=== PATIENT | male | born 1960 | race Caucasian/White ===

== ENCOUNTER 2018-12-31 22:22 | Emergency (ER) | payer BC, OTHER ==
--- NOTE | 2018-12-31 22:59 | EDM.PDOC ---
ED HPI GENERAL MEDICAL PROBLEM - General Stated Complaint: FALL; FAINTED Time Seen by Provider: 12/31/18 22:55 Source of Information: Reports: Patient, Family () History Limitations: Reports: Other (Patient is amnestic of the event.) - History of Present Illness INITIAL COMMENTS - FREE TEXT/NARRATIVE: 58-year-old male who by reports of he and his had sexual intercourse with his between 8 and 9 and they were lying in bed and she reports that he was rubbing her back and seemed to be dozing in and out and then at approximately 9: 15 to 9:30 PM she reports she began to complain of some left arm soreness and then at approximately 9:30 PM he reported that he felt like he might throw up and he apparently got up to go to the bathroom and she reports that once he was in the lynch he apparently felt backwards and struck his head on the floor. She found that he was lying on the floor and appeared to be confused and he set up and reported that he needed to go to the bathroom and apparently walked into the bathroom and had some dry heaving while sitting on the toilet. He did not have any urine output or any bowel movement at this time and apparently they were able to walking back to the bedroom (by this time the patient's had enlisted the patient's children to help her get him back to the bedroom and they dressed him and apparently he was complaining of some headache and neck pain and bilateral jaw pain at this time. The patient's mother and father arrived at this time and they brought him to the emergency department you private vehicle. The presents following this and gives all the history because the patient is completely amnestic of the events from when he was rubbing her back until bits and pieces of her trying to wake him up and then the ride and the car with his parents to the emergency department. He tells me now that he has bilateral jaw pain and anterior neck pain. He also is reporting a headache which is sharp, pounding and pressure like. He rates his pain as an 8 /10. He has no chest pain. He has never had any chest pain associated with this. He has no arm pain at this time. No diaphoresis. No nausea or vomiting at this point. The patient reportedly felt completely well prior to this and had no problems during the day. There were no antecedent symptoms. There are no other associated signs or symptoms. There are no other modifying factors. Onset: Today (Tonight) Duration: Getting Worse Location: Reports: Head, Face (Bilateral jaw and anterior neck), Neck (Anterior neck. He also has some posterior neck pain.) Quality: Reports: Pressure, Sharp, Throbbing Severity: Severe Improves with: Reports: None Worsens with: Reports: None Context: Reports: Other (As above) Associated Symptoms: Reports: Headaches, Nausea/Vomiting (Earlier but none now) , Syncope Treatments POLICE CHIEF: Reports: Other (see below) (Nothing) Posterior Headache Pain Score (Numeric/FACES): 7 - Related Data Allergies Allergy/AdvReac Type Severity Reaction Status Date / Time No Known Allergies Allergy Verified 12/31/18 23:12 Home Meds: Home Meds . [No Known Home Meds] 0 01/01/19 [History] Past Medical History - Past Health History Medical/Surgical History: Denies Medical/Surgical History (No chronic medical problems. He is on no medications. Surgical history as detailed below.) - Past Surgical History HEENT Surgical History: Reports: Oral Surgery (Was indeed extraction) Musculoskeletal Surgical History: Reports: Arthroscopic Knee (Of right knee 1) , Shoulder Surgery (Left shoulder surgery), Other (See Below) (Open surgery of right knee 1) Dermatological Surgical History: Reports: Other (See Below) (Pilonidal cystectomy) Social & Family History - Family History Respiratory: Reports: None Neurological: Reports: None - Tobacco Use Smoking Status *Q: Never Smoker - Alcohol Use Alcohol Use History: Yes Alcohol Use Frequency: Rarely (Drinks maybe once every 2-3 months and then only one beer) - Sexual History Sexual History: Reports: Sexually Active, Single Partner Other Sexual History Comment: Did have sexual intercourse with his approximately 30-45 minutes prior to this occurring. 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 with 10 hour days for some time.) ED ROS GENERAL - Review of Systems Review Of Systems: See Below Constitutional: Reports: No Symptoms HEENT: Reports: Other (Bilateral jaw and anterior neck pain) Respiratory: Reports: No Symptoms Cardiovascular: Reports: No Symptoms GI/Abdominal: Reports: Nausea (Earlier) : Reports: No Symptoms Musculoskeletal: Reports: Neck Pain, Arm Pain (Left arm pain earlier) Skin: Reports: No Symptoms Neurological: Reports: Headache, Syncope Hematologic/Lymphatic: Reports: No Symptoms Immunologic: Reports: No Symptoms - Physical Exam Exam: See Below Exam Limited By: No Limitations General Appearance: Alert, WD/WN, Moderate Distress Eye Exam: Bilateral Eye: EOMI, Normal Inspection, PERRL Ears: Normal External Exam, Hearing Grossly Normal Nose: Normal Inspection, Normal Mucosa, No Blood Throat/Mouth: Normal Inspection, Normal Lips, Normal Oropharynx, Normal Voice, No Airway Compromise Head Exam: Normocephalic, Scalp Tenderness (In the occipital area. There is no crepitus or bony deformity in this area.) Neck: Tender Midline (Posteriorly and also tender in his anterior neck with palpation. No crepitus noted.) Respiratory/Chest: No Respiratory Distress, Lungs Clear, Normal Breath Sounds, No Accessory Muscle Use, Chest Non-Tender Cardiovascular: Normal Peripheral Pulses, Regular Rate, Rhythm, No Murmur GI/Abdominal: Normal Bowel Sounds, Soft, Non-Tender, No Organomegaly, No Mass Neuro Exam (Abbreviated): Alert, Oriented, CN II-XII Intact, Normal Cognition, No Motor/Sensory Deficits Back Exam: Normal Inspection Extremities: Normal Inspection, Normal Range of Motion, Non-Tender, No Pedal Edema, Normal Capillary Refill Skin Exam: Warm, Dry, Intact, Normal Color, No Rash EKG INTERPRETATION EKG Date: 12/31/18 Time: 23:34 Rhythm: NSR Rate (Beats/Min): 59 [place]: Normal P-Wave: Present QRS: Normal ST-T: Other (Inverted and biphasic T waves in his anterior lateral leads) QT: Normal Comparison: NA - No Prior EKG Course - Vital Signs Last Recorded V/S: Last Vital Signs Temp 36.4 C 01/01/19 01:39 Pulse 58 L 01/01/19 01:39 Resp 18 01/01/19 01:39 BP 111/68 01/01/19 01:39 Pulse Ox 97 01/01/19 01:39 - Orders/Labs/Meds Orders: Active Orders 24 hr Category Date Time Status EKG Documentation Completion [RC] ASDIRECTED Care 12/31/18 23:15 Active Cervical Spine wo Cont [CT] Stat Exams 12/31/18 23:12 Ordered Head wo Cont [CT] Stat Exams 12/31/18 23:12 Ordered PTT,PARTIAL THROMBOPLSTIN TIME [COAG] Stat Lab 01/01/19 01:49 Ordered Heparin Sodium/0.45% NaCl [Heparin 25,000 Units in 1/2 Med 01/01/19 02:00 Ordered NS 500 ML] 500 ml IV ASDIRECTED Sodium Chloride 0.9% [Normal Saline] 1,000 ml Med 12/31/18 23:15 Active IV ASDIRECTED Sodium Chloride 0.9% [Saline Flush] Med 12/31/18 23:12 Active 10 ml FLUSH ASDIRECTED PRN Peripheral IV Insertion Adult [OM.PC] Routine Oth 12/31/18 23:12 Ordered EKG 12 Lead [EK] Routine Ther 12/31/18 23:14 Ordered Medication Orders Sodium Chloride (Normal Saline) 1,000 mls @ 999 mls/hr IV ASDIRECTED FLAKITA Last Admin: 12/31/18 23:33 Dose: 999 mls/hr Heparin Sodium/Sodium Chloride (Heparin 25,000 Units In 1/2 Ns 500 Ml) 500 mls @ 20 mls/hr IV ASDIRECTED FLAKITA Sodium Chloride (Saline Flush) 10 ml FLUSH ASDIRECTED PRN PRN Reason: Keep Vein Open Labs: Laboratory Tests 12/31/18 12/31/18 12/31/18 Range/Units 23:28 23:28 23:28 WBC 9.4 (4.5-12.0) X10-3/uL RBC 5.19 (4.30-5.75) x10(6)uL Hgb 15.7 (13.5-17.8) g/dL Hct 45.1 (30.0-51.3) % MCV 86.9 (80-96) fL MCH 30.3 (27.7-33.6) pg MCHC 34.8 (32.2-35.4) g/dL RDW 12.3 (11.5-15.5) % Plt Count 237 (125-369) X10(3)uL MPV 8.9 (7.4-10.4) fL Neut % (Auto) 65.1 (46-82) % Lymph % (Auto) 22.0 (13-37) % [place] % (Auto) 8.9 (4-12) % Eos % (Auto) 3 (1.0-5.0) % Baso % (Auto) 1 (0-2) % Neut # (Auto) 6.1 (1.6-8.3) # Lymph # (Auto) 2.1 (0.6-5.0) # [place] # (Auto) 0.8 (0.0-1.3) # Eos # (Auto) 0.3 (0.0-0.8) # Baso # (Auto) 0.1 (0.0-0.2) # ESR 2 (0-15) mm/hr PT (8.7-11.1) INR (0.89-1.13) Sodium 141 (135-145) mmol/L Potassium 3.7 (3.5-5.3) mmol/L Chloride 105 (100-110) mmol/L Carbon Dioxide 28 (21-32) mmol/L BUN 20 H (7-18) mg/dL Creatinine 1.0 (0.70-1.30) mg/dL Est Cr Clr Drug Dosing TNP Estimated GFR (MDRD) > 60 (>60) BUN/Creatinine Ratio 20.0 (9-20) Glucose 121 H (80-116) mg/dL Calcium 9.0 (8.6-10.2) mg/dL Magnesium 1.9 (1.8-2.5) mg/dL Total Bilirubin 0.3 (0.1-1.3) mg/dL AST 13 (5-25) IU/L ALT 25 (12-36) U/L Alkaline Phosphatase 76 (56-112) IU/L Troponin I < 0.017 L (<0.017-0.056) ng/mL Total Protein 7.1 (6.0-8.0) g/dL Albumin 3.4 L (3.5-5.2) g/dL Globulin 3.7 g/dL Albumin/Globulin Ratio 0.9 12/31/18 Range/Units 23:28 WBC (4.5-12.0) X10-3/uL RBC (4.30-5.75) x10(6)uL Hgb (13.5-17.8) g/dL Hct (30.0-51.3) % MCV (80-96) fL MCH (27.7-33.6) pg MCHC (32.2-35.4) g/dL RDW (11.5-15.5) % Plt Count (125-369) X10(3)uL MPV (7.4-10.4) fL Neut % (Auto) (46-82) % Lymph % (Auto) (13-37) % [place] % (Auto) (4-12) % Eos % (Auto) (1.0-5.0) % Baso % (Auto) (0-2) % Neut # (Auto) (1.6-8.3) # Lymph # (Auto) (0.6-5.0) # [place] # (Auto) (0.0-1.3) # Eos # (Auto) (0.0-0.8) # Baso # (Auto) (0.0-0.2) # ESR (0-15) mm/hr PT 9.8 (8.7-11.1) INR 1.01 (0.89-1.13) Sodium (135-145) mmol/L Potassium (3.5-5.3) mmol/L Chloride (100-110) mmol/L Carbon Dioxide (21-32) mmol/L BUN (7-18) mg/dL Creatinine (0.70-1.30) mg/dL Est Cr Clr Drug Dosing Estimated GFR (MDRD) (>60) BUN/Creatinine Ratio (9-20) Glucose (80-116) mg/dL Calcium (8.6-10.2) mg/dL Magnesium (1.8-2.5) mg/dL Total Bilirubin (0.1-1.3) mg/dL AST (5-25) IU/L ALT (12-36) U/L Alkaline Phosphatase (56-112) IU/L Troponin I (<0.017-0.056) ng/mL Total Protein (6.0-8.0) g/dL Albumin (3.5-5.2) g/dL Globulin g/dL Albumin/Globulin Ratio Meds: Medications Generic Name Dose Route Start Last Admin Trade Name Freq PRN Reason Stop Dose Admin Sodium Chloride 1,000 mls @ 999 mls/hr 12/31/18 23:15 12/31/18 23:33 Normal Saline IV 999 mls/hr ASDIRECTED FLAKITA Administration Heparin Sodium/Sodium Chloride 500 mls @ 20 mls/hr 01/01/19 02:00 Heparin 25,000 Units In 1/2 Ns 500 Ml IV ASDIRECTED FLAKITA Sodium Chloride 10 ml 12/31/18 23:12 Saline Flush FLUSH ASDIRECTED PRN Keep Vein Open Discontinued Medications Generic Name Dose Route Start Last Admin Trade Name Dario PRN Reason Stop Dose Admin Aspirin 324 mg 01/01/19 00:59 01/01/19 01:08 Aspirin PO 01/01/19 01:00 324 mg ONETIME ONE Administration Diphenhydramine HCl 25 mg 12/31/18 23:15 12/31/18 23:53 Benadryl IVPUSH 12/31/18 23:16 25 mg ONETIME ONE Administration Heparin Sodium (Porcine) 4,000 units 01/01/19 01:49 01/01/19 01:56 Heparin Sodium IVPUSH 01/01/19 01:50 4,000 units ONETIME ONE Administration Nitroglycerin 0.4 mg 01/01/19 00:59 01/01/19 01:09 Nitrostat SL 01/01/19 01:00 0.4 mg ONETIME ONE Administration Prochlorperazine Edisylate 10 mg 12/31/18 23:15 12/31/18 23:55 Compazine IVPUSH 12/31/18 23:16 10 mg ONETIME ONE Administration - Radiology Interpretation Free Text/Narrative:: CT scan of head showed no acute infarction, intracranial hemorrhage or mass effect per the [facility] radiologist area CT scan of cervical spine showed no acute osseous injuries per the [facility] radiologist. - Re-Assessments/Exams Free Text/Narrative Re-Assessment/Exam: 01/01/19 00:50: Patient's headache is much improved after the IV fluid normal saline bolus and the Compazine and Benadryl IV. He still has anterior neck pain and jaw pain although this is improved as well. He has no arm pain or chest pain at this time. He does not feel short of breath. His blood tests are reassuring at this point. His EKG though does show evidence of lateral ischemic changes. There is no current of injury. The CT scans of his head and cervical spine appear negative to me, I am waiting on the official read. I will give the patient aspirin 324 mg by mouth and we will give a trial of nitroglycerin, 1 sublingual. 01/01/19 01:18: The patient reports complete resolution of his anterior neck and jaw pain after one sublingual nitroglycerin. He remains vitally and neurologically stable. The CT scans of his head and cervical spine were read as negative by the [facility] radiologist. With the abnormal EKG and the left arm pain with jaw and neck pain I am concerned that this could be an acute coronary syndrome with unstable angina. He will need admission for continued cardiac monitoring and serial EKGs and troponins. There are no beds available at [facility] at this time and in any case with the patient's possible acute cardiac syndrome he would be best served at a hospital with cardiology specially services. I have discussed this with the patient and he wants me to call the doctors at [facility] in [place]. 01/01/19 01:50: I discussed patient's case with Dr. Peralta, hospitalist control analyst at [facility] in [place], and she has agreed to accept the patient in transfer. She recommends that I place patient on a heparin drip via ACS protocol and she was in agreement with the aspirin. The patient will be transferred via ambulance to [facility] in [place] for direct admission. The patient and his family are in agreement with the plans for transfer. Departure - Departure Time of Disposition: 02:15 Disposition: DC/Tfer to Acute Hospital 02 Condition: Fair (Guarded) Clinical Impression: Acute coronary syndrome, Abnormal EKG Syncope Qualifiers: Syncope type: unspecified Qualified Code(s): R55 - Syncope and collapse Contusion of occipital region of scalp Qualifiers: Encounter type: initial encounter Qualified Code(s): S00.03XA - Contusion of scalp, initial encounter - Discharge Information Referrals: PCP,None [Primary Care Provider] - - My Orders Last 24 Hours: My Active Orders 12/31/18 23:12 Cervical Spine wo Cont [CT] Stat Head wo Cont [CT] Stat Sodium Chloride 0.9% [Saline Flush] 10 ml FLUSH ASDIRECTED PRN Peripheral IV Insertion Adult [OM.PC] Routine 12/31/18 23:14 EKG 12 Lead [EK] Routine 12/31/18 23:15 EKG Documentation Completion [RC] ASDIRECTED Sodium Chloride 0.9% [Normal Saline] 1,000 ml IV ASDIRECTED 01/01/19 01:49 PTT,PARTIAL THROMBOPLSTIN TIME [COAG] Stat 01/01/19 02:00 Heparin Sodium/0.45% NaCl [Heparin 25,000 Units in 1/2 NS 500 ML] 500 ml IV ASDIRECTED - Assessment/Plan Last 24 Hours: My Active Orders 12/31/18 23:12 Cervical Spine wo Cont [CT] Stat Head wo Cont [CT] Stat Sodium Chloride 0.9% [Saline Flush] 10 ml FLUSH ASDIRECTED PRN Peripheral IV Insertion Adult [OM.PC] Routine 12/31/18 23:14 EKG 12 Lead [EK] Routine 12/31/18 23:15 EKG Documentation Completion [RC] ASDIRECTED Sodium Chloride 0.9% [Normal Saline] 1,000 ml IV ASDIRECTED 01/01/19 01:49 PTT,PARTIAL THROMBOPLSTIN TIME [COAG] Stat 01/01/19 02:00 Heparin Sodium/0.45% NaCl [Heparin 25,000 Units in 1/2 NS 500 ML] 500 ml IV ASDIRECTED
[2018-12-31] MEDS ORDERED: Sodium Chloride 0.9% 10 ML Syringe FLUSH PRN (23:12)
[2018-12-31] MEDS ORDERED: Sodium Chloride 0.9% 1,000 ML IV SCH (23:15)
[2018-12-31] MEDS ORDERED: Prochlorperazine 10 MG/2 ML SDV IVPUSH ONE (23:15)
[2018-12-31] MEDS ORDERED: diphenhydrAMINE 50 MG/ML SDV IVPUSH ONE (23:15)
[2019-01-01] MEDS ORDERED: Nitroglycerin 0.4 MG Tab.SL SL ONE (00:59)
[2019-01-01] MEDS ORDERED: Aspirin 81 MG Tab.Chew PO ONE (00:59)
[2019-01-01] MEDS ORDERED: Heparin Sodium 5,000 Units/ML Vial IVPUSH ONE (01:49)
[2019-01-01] MEDS ORDERED: Heparin Sodium/0.45% NaCl 500 ML IV SCH (02:00)
== END 2019-01-01 02:39 ==
LOC: FB.ED 22:22
DX: S00.03XA Contusion of scalp, initial encounter (principal); I24.9 Acute ischemic heart disease, unspecified; R94.31 Abnormal electrocardiogram [ECG] [EKG]; R55 Syncope and collapse; W18.30XA Fall on same level, unspecified, initial encounter; Y92.89 Other specified places as the place of occurrence of the external cause
CPT/HCPCS: 36415; 70450; 72125; 80053; 83735; 84484; 85025; 85610; 85651; 85730; 93005; 96361; 96365; 96375; 96376; 99285; A9270; J0780; J1200; J1644; J7030

== ENCOUNTER 2019-12-20 08:33 | Day surgery (SDC) | payer OTHER ==
[~2019-12-20 08:33] MED LIST: Lactated Ringers 1,000 ML IV SCH; Sodium Chloride 0.9% 10 ML Syringe FLUSH PRN
[2019-12-20] MEDS ORDERED: Propofol 200 MG/20 ML SDV IV ONE (08:34)
[2019-12-20] MEDS ORDERED: Lidocaine 1% PF 2 ML SDV IV ONE (08:34)
--- NOTE | 2019-12-20 10:49 | PCM.OPNOTE ---
- General Post-Op/Procedure Note Date of Surgery/Procedure: 12/20/19 Operative Procedure(s): c scope with biopsy Findings: descending colon polyp Pre Op Diagnosis: screening Post-Op Diagnosis: descending colon polyp Anesthesia Technique: MAC Primary Surgeon: Bertrand Jason Anesthesia Provider: Román Mcrae Pathology: descending colon polyp Complications: None Condition: Good Free Text/Narrative:: see dictation
--- NOTE | 2019-12-20 14:45 | OR ---
DATE OF OPERATION: 12/20/2019 SURGEON: Bertrand Jason MD PROCEDURE PERFORMED: Colonoscopy with cold forceps biopsy. PREOPERATIVE DIAGNOSIS: Colon cancer screening. POSTOPERATIVE DIAGNOSIS: Polyp of the descending colon. INDICATIONS FOR PROCEDURE: This is a 59-year-old white male, who presents for screening colonoscopy. He was offered and accepted same. DESCRIPTION OF PROCEDURE: After an excellent IV sedation was administered, a digital rectal exam was performed. No marked abnormality was noted. Flexible colonoscope was inserted and advanced to the cecum. The prep was excellent. The following findings were noted: Ascending colon: Unremarkable. Transverse colon: Unremarkable. Descending colon: At approximately 50 cm, there was an area that appeared to possibly be some early adenomatous changes. Biopsies were obtained. The specimen was submitted in one container. Otherwise, the descending colon was unremarkable. Sigmoid: Unremarkable. Rectum and Anus: Unremarkable. The colon was deflated as the scope was removed. The patient tolerated the procedure well and was taken to recovery. /[id number] /GARCIA
== END 2019-12-20 11:26 | disposition home or self-care (01) ==
LOC: FB.SDS 08:33
PROVIDERS: ATTEND Surgery
DX: Z12.11 Encounter for screening for malignant neoplasm of colon (principal); K63.5 Polyp of colon; Z79.899 Other long term (current) drug therapy; Z90.49 Acquired absence of other specified parts of digestive tract; Z87.19 Personal history of other diseases of the digestive system
CPT/HCPCS: 00812-QZ; 88305; J2001; J2704; J7120

== ENCOUNTER 2021-03-11 11:41 | Emergency (ER) | payer OTHER ==
[2021-03-11] MEDS ORDERED: fentaNYL 100 MCG/2 ML SDV IV ONE (11:42)
[2021-03-11] MEDS ORDERED: Propofol 200 MG/20 ML SDV IV ONE (11:42)
--- NOTE | 2021-03-11 11:46 | EDM.PDOC ---
ED HPI GENERAL MEDICAL PROBLEM - General Stated Complaint: CHEST PAIN Time Seen by Provider: 03/11/21 11:45 Source of Information: Reports: Patient History Limitations: Reports: No Limitations - History of Present Illness INITIAL COMMENTS - FREE TEXT/NARRATIVE: 61-year-old male who reports that he has been feeling well until approximately 10 AM today when he began to feel like his heart was beating hard and fast and he had a lump and a burning feeling in his central chest. 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 He has had feelings of dizziness and weakness and near syncope. He has had no difficulty breathing. There has been no nausea or vomiting. He has had similar symptoms in the past and 2 years ago and again in [place] where he had a cardiac catheterization that showed clean coronary arteries per the patient's report. It was discovered that he had a cardiomyopathy and he has been referred to the [facility] where he had workup and now has a loop recorder in place. He is currently on Eliquis and metoprolol. He states that he has been working a lot of overtime and his shifts as a email deployment specialist have become harder as well because of the recent snow and him having to trudge through snow and not be able to use short cuts. He actually went back to his vehicle when this began and drove back to his office and then went to the clinic at [facility] in [place]. They called the ambulance and sent him here via ambulance. He is currently rating the pain as a 7/10 but is more a feeling that his heart is beating fast and hard. Nothing really seems to make it better. Nothing has seemed to make it worse. There are no other associated signs or symptoms. There are no other modifying factors. Onset: Today (10 AM) Duration: Getting Worse Location: Reports: Chest Quality: Reports: Burning, Other (Beating hard feeling.) Severity: Moderate Improves with: Reports: None Worsens with: Reports: None Context: Reports: Other (As above.) Associated Symptoms: Reports: No Other Symptoms (Except as above.) Treatments POT TENDER: Reports: Aspirin, Nitroglycerin (x2) Middle Chest Pain Score (Numeric/FACES): 5 - Related Data Allergies Allergy/AdvReac Type Severity Reaction Status Date / Time No Known Allergies Allergy Verified 12/20/19 09:12 Home Meds: Home Meds Apixaban [Eliquis] 5 mg PO DAILY 12/19/19 [History] Ascorbate Calcium [Vitamin C] 500 mg PO DAILY 12/19/19 [History] Metoprolol Tartrate [Lopressor] 12.5 mg PO DAILY 12/19/19 [History] Past Medical History Cardiovascular History: Reports: Afib, Cardiomyopathy, Syncope - Past Surgical History HEENT Surgical History: Reports: Oral Surgery Cardiovascular Surgical History: Reports: Other (See Below) (Cardiac c atheterization with no intervention. Reportedly clean coronary arteries in 2019. Loop recorder placed at the [facility].) GI Surgical History: Reports: Appendectomy, Hernia Repair/Other Male Surgical History: Reports: Vasectomy Musculoskeletal Surgical History: Reports: Arthroscopic Knee, Arthroscopic Procedure, Shoulder Surgery, Other (See Below) Other Musculoskeletal Surgeries/Procedures:: CYST EXCISION TAILBONE, SPINE SURGERY Dermatological Surgical History: Reports: Other (See Below) Social & Family History - Family History Respiratory: Reports: None Neurological: Reports: None - Tobacco Use Tobacco Use Status *Q: Unknown Ever Used Tobacco (Nonsmoker) - Caffeine Use Caffeine Use: Reports: Coffee, Soda - Alcohol Use Alcohol Use History: No Alcohol Use Comment: No alcohol use for the past 2 years and no heavy use prior to that. - Sexual History Other Sexual History Comment: Did have sexual intercourse with his approximately 30-45 minutes prior to this occurring. 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 Denies: Headache Psychiatric: Reports: Anxiety Hematologic/Lymphatic: Reports: Easy Bleeding, Easy Bruising, Other (Patient is on Eliquis.) ED EXAM, GENERAL - Physical Exam Exam: See Below Exam Limited By: No Limitations General Appearance: Alert, WD/WN, Anxious, Moderate Distress (Appears anxious and somewhat uncomfortable. No respiratory distress.) Eye Exam: Bilateral Eye: EOMI, Normal Inspection (Sclera are anicteric.), PERRL Ears: Normal External Exam, Hearing Grossly Normal Ear Exam: Bilateral Ear: Auricle Normal Nose: Normal Inspection, Normal Mucosa, No Blood Throat/Mouth: Normal Inspection, Normal Oropharynx, Normal Voice, No Airway Compromise Head: Atraumatic, Normocephalic Neck: Normal Inspection, Supple, Non-Tender, Full Range of Motion Respiratory/Chest: No Respiratory Distress, Lungs Clear, Normal Breath Sounds, No Accessory Muscle Use, Chest Non-Tender Cardiovascular: No Gallop, No JVD, No Murmur, Tachycardia, Irregularly Irregular Peripheral Pulses: 2+: Radial (L), Radial (R), Dorsalis Pedis (L), Dorsalis Pedis (R) GI/Abdominal: Normal Bowel Sounds, Soft, Non-Tender, No Mass Back Exam: Normal Inspection Extremities: Normal Inspection, Normal Range of Motion, Non-Tender, No Pedal Edema, Normal Capillary Refill Neurological: Alert, Oriented, CN II-XII Intact, Normal Cognition, No Motor/Sensory Deficits Psychiatric: Anxious Skin Exam: Warm, Dry, Intact, Normal Color, No Rash ED CARDIOLOGY PROCEDURES - Cardioversion Time of Cardioversion: 13:58 Indication: Atrial Fibrillation with RVR Patient Counseled: Yes Informed Consent Obtained: Yes (Informed verbal consent.) Preparation: IV Access, Airway Management Equipment, Supplemental Oxygen, Monitor, Reversal Agents Available Pre-Procedure Sedation: Propofol, Fentanyl Cardioversion Energy: 200J Sync Mode: Biphasic Successful: Yes Number of Attempts: 2 Patient Condition Post Cardioversion: Improved Post Cardioversion EKG Reviewed: Yes (Normal sinus rhythm with a rate of 53. Similar to his previous EKG in 2019) #1 Interpretation EKG Date: 03/11/21 Time: 11:43 Rhythm: A-Fib Rate (Beats/Min): 132 [place]: LAD-Left [place] Deviation P-Wave: Absent QRS: Normal ST-T: Other (LVH with repolarization abnormality) QT: Normal Comparison: Change From Previous EKG (Since EKG performed on 12/31/2018, A. fib with RVR is new.) #2 Interpretation EKG Date: 03/11/21 Time: 14:43 Rhythm: NSR Rate (Beats/Min): 53 [place]: LAD-Left [place] Deviation (Mild LAD) P-Wave: Present QRS: Normal ST-T: Other (LVH with secondary repolarization abnormality) QT: Normal (Normal QTc.) Comparison: No Change (No change from an EKG performed 12/2018. Compared to the previous EKG today, A. fib with RVR has resolved.) Course - Vital Signs Last Recorded V/S: Last Vital Signs Temp 36.7 C 03/11/21 11:48 Pulse 56 L 03/11/21 15:09 Resp 11 L 03/11/21 15:09 BP 129/83 03/11/21 15:09 Pulse Ox 96 03/11/21 15:09 - Orders/Labs/Meds Orders: Active Orders 24 hr Category Date Time Status Chest 1V Frontal [CR] Stat Exams 03/11/21 11:46 Taken EKG 12 Lead [EK] Routine Ther 03/11/21 11:46 Ordered EKG 12 Lead [EK] Routine Ther 03/11/21 14:49 Ordered Labs: Laboratory Tests 03/11/21 03/11/21 03/11/21 Range/Units 11:40 11:40 11:40 WBC 7.6 (3.2-10.1) x10-3/uL RBC 5.29 (3.90-5.90) x10(6)uL Hgb 15.7 (12.9-17.7) g/dL Hct 45.1 (38.3-50.1) % MCV 85.4 (80.8-98.7) fL MCH 29.6 (27.0-33.3) pg MCHC 34.7 (28.7-35.3) g/dL RDW 13.2 (12.4-15.0) % Plt Count 271 (117-477) x10(3)uL MPV 7.8 (6.7-11.0) fL Neut % (Auto) 59.7 (40.3-71.8) % Lymph % (Auto) 29.9 (15.8-45.3) % [place] % (Auto) 8.5 (5.5-15.2) % Eos % (Auto) 1.2 (0.1-6.8) % Baso % (Auto) 0.7 (0.3-3.8) % Neut # (Auto) 4.5 (1.7-6.9) x10-3/uL Lymph # (Auto) 2.3 (0.5-4.5) x10-3/uL [place] # (Auto) 0.6 (0.0-1.2) x10-3/uL Eos # (Auto) 0.1 (0.0-0.6) x10-3/uL Baso # (Auto) 0.1 (0.0-0.3) x10-3/uL Sodium 140 (135-145) mmol/L Potassium 3.8 (3.5-5.3) mmol/L Chloride 104 (100-110) mmol/L Carbon Dioxide 28 (21-32) mmol/L BUN 16 (7-18) mg/dL Creatinine 1.2 (0.70-1.30) mg/dL Est Cr Clr Drug Dosing 66.75 mL/min Estimated GFR (MDRD) > 60 (>60) BUN/Creatinine Ratio 13.3 (9-20) Glucose 103 (80-116) mg/dL Calcium 9.3 (8.6-10.2) mg/dL Magnesium 2.0 (1.8-2.5) mg/dL Total Bilirubin 0.8 (0.1-1.3) mg/dL AST 30 H D (5-25) IU/L ALT 35 D (12-36) U/L Alkaline Phosphatase 58 (56-112) IU/L Troponin I 18.3 (4.0-60.3) pg/mL Total Protein 7.8 (6.0-8.0) g/dL Albumin 3.9 (3.2-4.6) g/dL Globulin 3.9 g/dL Albumin/Globulin Ratio 1.0 Meds: Medications Discontinued Medications Generic Name Dose Route Start Last Admin Trade Name Freq PRN Reason Stop Dose Admin Fentanyl 100 mcg 03/11/21 11:42 Fentanyl 100 Mcg/2 Ml Sdv IV 03/11/21 11:43 .STK-MED ONE Sodium Chloride 1,000 mls @ 150 mls/hr 03/11/21 14:00 03/11/21 13:52 Normal Saline IV 150 mls/hr ASDIRECTED FLAKITA Administration Metoprolol Tartrate 12.5 mg 03/11/21 14:49 03/11/21 14:53 Metoprolol Tartrate 25 Mg Tab PO 03/11/21 14:50 12.5 mg ONETIME ONE Administration Propofol 120 mg 03/11/21 11:42 Propofol 200 Mg/20 Ml Sdv IV 03/11/21 11:43 .STK-MED ONE - Radiology Interpretation Free Text/Narrative:: Portable chest x-ray showed no acute disease per the [facility] radiologist. - Re-Assessments/Exams Free Text/Narrative Re-Assessment/Exam: 03/11/21 12:35: White blood cell count is 7.6. Hemoglobin is 15.7. Platelet count is normal. Sodium is 140. Potassium is 3.8. Bicarbonate is 28. BUN is 16 and creatinine is 1.2. Glucose is 108. LFTs are normal. Magnesium is 2.0. Troponin is 18.7 or normal. The chest x-ray shows no acute disease. The patient has A. fib with RVR on the EKG and rates vary anywhere from the 100s to 140s. His blood pressure remains stable in the 120 to 130 systolic range. I have discussed treatment options with the patient but I will also call and discussed the patient's case with the inspector hot forgings at [facility] in [place]. 03/11/21 12:55: I discussed the patient's case with Dr. Granados, inspector hot forgings at [facility] in [place], and he recommended synchronized DC cardioversion. He also recommended increasing the patient's metoprolol to 12.5 mg twice daily (he been taking 12.5 mg). He felt the patient could be discharged following this. I will discuss all this with the patient. 03/11/21 13:25: I discussed all of this with the patient and have the risk and the benefits associated with synchronized DC cardioversion and with IV proce dural sedation which will be performed by WAYNE Martinez. The patient appeared to understand all of this and has asked me to proceed with synchronized DC cardioversion and the IV procedural sedation. 03/11/21 14:25: The patient is awake and conversant. He has remained hemodynamically, neurologically and respiratory stable. He is in a normal sinus rhythm on the monitor with a rate in the 60-70 range. I will have the nursing staff repeat his EKG and we will continue to closely monitor the patient. I anticipate the patient will be available be discharged. I will also order metoprolol 12.5 mg by mouth. The patient is currently symptom free. He has no pains and no feeling of pounding in his chest. 03/11/21 15:10: The patient is awake and alert. He has remained hemodynamically, neurologically and respiratory stable. His repeat EKG showed a normal sinus rhythm and there was LVH with repolarization abnormality but it was really unchanged from his previous EKG in 2019. He appears stable for discharge. I will have the nursing staff ambulate the patient and if he well he will be discharged. He will be taking metoprolol 12.5 mg by mouth twice a day all and he is to follow-up with his primary provider by the first of next week Departure - Departure Time of Disposition: 15:35 Disposition: Home, Self-Care 01 Condition: Good Clinical Impression: Atrial fibrillation with rapid ventricular response Instructions: Moderate Conscious Sedation, Adult, Electrical Cardioversion, Moderate Conscious Sedation, Adult, Care After, Atrial Fibrillation, [id number] Referrals: Beena Valentino PA [Primary Care Provider] - Forms: ED Department Discharge, ED Return to Work/School Form Additional Instructions: All of your blood tests were reassuringly normal. Your chest x-ray was normal. Your EKG showed that you were in atrial fibrillation with a fast heart rate. We performed a cardioversion and this converted your rhythm back to a normal sinus rhythm. We have observed you in the emergency department and you have stayed in the normal sinus rhythm and your symptoms are all resolved. You will need to increase your metoprolol to 12.5 mg tablet in the morning and then another 12.5 mg tablet in the evening. You will need to follow-up with your primary provider by next week. No work or any strenuous activity until cleared by your provider next week. I have given you a note off work until 03/18/2021. Back to the emergency department for recurrent fast heart rate, trouble breathing, recurrent chest pain, severe weakness or any other concerning signs or symptoms. Sepsis Event Note (ED) - Focused Exam Vital Signs: Vital Signs Temp Pulse Pulse Resp BP BP Pulse Ox 03/11/21 15:09 56 L 11 L 129/83 96 03/11/21 14:53 60 127/80 03/11/21 14:34 53 L 16 115/68 99 03/11/21 11:59 114 H 18 125/70 95 03/11/21 11:48 36.7 C 130 H 18 131/76 94 L - My Orders Last 24 Hours: My Active Orders 03/11/21 11:46 Chest 1V Frontal [CR] Stat EKG 12 Lead [EK] Routine 03/11/21 14:49 EKG 12 Lead [EK] Routine - Assessment/Plan Last 24 Hours: My Active Orders 03/11/21 11:46 Chest 1V Frontal [CR] Stat EKG 12 Lead [EK] Routine 03/11/21 14:49 EKG 12 Lead [EK] Routine
[2021-03-11] MEDS ORDERED: Sodium Chloride 0.9% 1,000 ML IV SCH (14:00)
[2021-03-11] MEDS ORDERED: Metoprolol Tartrate 25 MG Tab PO ONE (14:49)
== END 2021-03-11 15:47 | disposition home or self-care (01) ==
LOC: FB.ED 11:41
DX: I48.91 Unspecified atrial fibrillation (principal); Z79.01 Long term (current) use of anticoagulants
CPT/HCPCS: 36415; 71045; 80053; 83735; 84484; 85025; 92960; 93005; 99285-25; A9270-GY; J2704; J3010; J7030

== ENCOUNTER 2021-03-19 10:54 | Emergency (ER) | payer OTHER ==
[2021-03-19] MEDS ORDERED: Sodium Chloride 0.9% 10 ML Syringe FLUSH PRN (10:55)
[2021-03-19] MEDS ORDERED: Ketorolac 30 MG/ML SDV IVPUSH STA (11:20)
--- NOTE | 2021-03-19 11:32 | EDM.PDOC ---
ED HPI GENERAL MEDICAL PROBLEM - General Stated Complaint: CHEST PAIN Time Seen by Provider: 03/19/21 11:15 Source of Information: Reports: Patient, Family History Limitations: Reports: No Limitations - History of Present Illness INITIAL COMMENTS - FREE TEXT/NARRATIVE: Patient presented to the ED from the [facility] because of 1 week history of chest pain, burning type over the left chest wall. there is no associated nausea, vomiting but he has occasional dizzy spells and dyspnea which according to him isn't new. He has a history of cardiomyoathy and had an echo and coronary angiogram done in 09/08 which were normal. - Related Data Allergies Allergy/AdvReac Type Severity Reaction Status Date / Time No Known Allergies Allergy Verified 12/20/19 09:12 Home Meds: Home Meds Apixaban [Eliquis] 5 mg PO DAILY 12/19/19 [History] Ascorbate Calcium [Vitamin C] 500 mg PO DAILY 12/19/19 [History] Metoprolol Tartrate [Lopressor] 25 mg PO DAILY 12/19/19 [History] traMADol [Ultram] 100 mg PO Q8H PRN #15 tab 03/19/21 [Rx] Past Medical History - Past Health History Medical/Surgical History: Denies Medical/Surgical History Cardiovascular History: Reports: Afib, Cardiomyopathy, Syncope - Infectious Disease History Infectious Disease History: Reports: None - Past Surgical History Cardiovascular Surgical History: Reports: Other (See Below) (Cardiac cat heterization with no intervention. Reportedly clean coronary arteries in 2019. Loop recorder placed at the [facility].) Social & Family History - Family History Respiratory: Reports: None Neurological: Reports: None - Caffeine Use Caffeine Use: Reports: Coffee, Soda - Sexual History Other Sexual History Comment: Did have sexual intercourse with his approximately 30-45 minutes prior to this occurring. 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 for some time.) ED ROS GENERAL - Review of Systems Review Of Systems: See Below Constitutional: Reports: No Symptoms HEENT: Reports: No Symptoms Respiratory: Reports: Shortness of Breath Cardiovascular: Reports: Chest Pain Endocrine: Reports: No Symptoms GI/Abdominal: Reports: No Symptoms : Reports: No Symptoms Musculoskeletal: Reports: No Symptoms Skin: Reports: No Symptoms Neurological: Reports: No Symptoms ED EXAM, GENERAL - Physical Exam Exam: See Below Exam Limited By: No Limitations General Appearance: Alert, No Apparent Distress Ears: Normal External Exam, Normal [place], Normal TMs Nose: Normal Inspection, Normal Mucosa, No Blood Throat/Mouth: Normal Inspection, Normal Lips, Normal Teeth, Normal Oropharynx, Normal Voice Head: Atraumatic, Normocephalic Neck: Normal Inspection, Supple, Non-Tender, Full Range of Motion Respiratory/Chest: No Respiratory Distress, Lungs Clear, Normal Breath Sounds, No Accessory Muscle Use, Other (tenderness left ) Cardiovascular: Normal Peripheral Pulses, Regular Rate, Rhythm, No Edema Back Exam: Normal Inspection, Full Range of Motion Extremities: Normal Inspection, Normal Range of Motion, Non-Tender, No Pedal Edema Neurological: Alert, Oriented, CN II-XII Intact #1 Interpretation EKG Date: 03/19/21 Time: 10:57 Rhythm: NSR Rate (Beats/Min): 55 [place]: Normal P-Wave: Present QRS: Normal ST-T: Normal QT: Normal [place]/PQ Interval: 142 Comparison: No Change EKG Interpretation Comments: NSR LVH Course - Orders/Labs/Meds Orders: Active Orders 24 hr Category Date Time Status Sodium Chloride 0.9% [Saline Flush] Med 03/19/21 10:55 Active 10 ml FLUSH ASDIRECTED PRN Saline Lock Insert [OM.PC] Routine Oth 03/19/21 10:55 Ordered EKG 12 Lead [EK] Routine Ther 03/19/21 10:55 Ordered Medication Orders Sodium Chloride (Sodium Chloride 0.9% 10 Ml Syringe) 10 ml FLUSH ASDIRECTED PRN PRN Reason: Keep Vein Open Last Admin: 03/19/21 11:48 Dose: 10 ml Documented by: DIFFCAL Labs: Laboratory Tests 03/19/21 03/19/21 03/19/21 Range/Units 11:10 11:10 11:10 WBC 8.6 (3.2-10.1) x10-3/uL RBC 5.76 (3.90-5.90) x10(6)uL Hgb 16.7 (12.9-17.7) g/dL Hct 49.9 (38.3-50.1) % MCV 86.6 (80.8-98.7) fL MCH 28.9 (27.0-33.3) pg MCHC 33.4 (28.7-35.3) g/dL RDW 13.4 (12.4-15.0) % Plt Count 269 (117-477) x10(3)uL MPV 7.5 (6.7-11.0) fL Neut % (Auto) 66.0 (40.3-71.8) % Lymph % (Auto) 21.9 (15.8-45.3) % [place] % (Auto) 8.6 (5.5-15.2) % Eos % (Auto) 2.9 (0.1-6.8) % Baso % (Auto) 0.6 (0.3-3.8) % Neut # (Auto) 5.7 (1.7-6.9) x10-3/uL Lymph # (Auto) 1.9 (0.5-4.5) x10-3/uL [place] # (Auto) 0.7 (0.0-1.2) x10-3/uL Eos # (Auto) 0.3 (0.0-0.6) x10-3/uL Baso # (Auto) 0.1 (0.0-0.3) x10-3/uL PT (9.0-11.1) sec INR (1.00-1.24) APTT (24.4-33.2) SECONDS Sodium 140 (135-145) mmol/L Potassium 4.2 (3.5-5.3) mmol/L Chloride 104 (100-110) mmol/L Carbon Dioxide 31 (21-32) mmol/L BUN 16 (7-18) mg/dL Creatinine 1.2 (0.70-1.30) mg/dL Est Cr Clr Drug Dosing TNP Estimated GFR (MDRD) > 60 (>60) BUN/Creatinine Ratio 13.3 (9-20) Glucose 89 (80-116) mg/dL Calcium 9.1 (8.6-10.2) mg/dL Total Bilirubin 0.5 (0.1-1.3) mg/dL AST 20 D (5-25) IU/L ALT 27 D (12-36) U/L Alkaline Phosphatase 67 (56-112) IU/L Troponin I 12.7 (4.0-60.3) pg/mL NT-Pro-B Natriuret Pep (<=125) pg/mL Total Protein 8.0 (6.0-8.0) g/dL Albumin 3.8 (3.2-4.6) g/dL Globulin 4.2 g/dL Albumin/Globulin Ratio 0.9 03/19/21 03/19/21 Range/Units 11:10 11:10 WBC (3.2-10.1) x10-3/uL RBC (3.90-5.90) x10(6)uL Hgb (12.9-17.7) g/dL Hct (38.3-50.1) % MCV (80.8-98.7) fL MCH (27.0-33.3) pg MCHC (28.7-35.3) g/dL RDW (12.4-15.0) % Plt Count (117-477) x10(3)uL MPV (6.7-11.0) fL Neut % (Auto) (40.3-71.8) % Lymph % (Auto) (15.8-45.3) % [place] % (Auto) (5.5-15.2) % Eos % (Auto) (0.1-6.8) % Baso % (Auto) (0.3-3.8) % Neut # (Auto) (1.7-6.9) x10-3/uL Lymph # (Auto) (0.5-4.5) x10-3/uL [place] # (Auto) (0.0-1.2) x10-3/uL Eos # (Auto) (0.0-0.6) x10-3/uL Baso # (Auto) (0.0-0.3) x10-3/uL PT 10.7 (9.0-11.1) sec INR 0.99 L (1.00-1.24) APTT 32.4 (24.4-33.2) SECONDS Sodium (135-145) mmol/L Potassium (3.5-5.3) mmol/L Chloride (100-110) mmol/L Carbon Dioxide (21-32) mmol/L BUN (7-18) mg/dL Creatinine (0.70-1.30) mg/dL Est Cr Clr Drug Dosing Estimated GFR (MDRD) (>60) BUN/Creatinine Ratio (9-20) Glucose (80-116) mg/dL Calcium (8.6-10.2) mg/dL Total Bilirubin (0.1-1.3) mg/dL AST (5-25) IU/L ALT (12-36) U/L Alkaline Phosphatase (56-112) IU/L Troponin I (4.0-60.3) pg/mL NT-Pro-B Natriuret Pep 144 H (<=125) pg/mL Total Protein (6.0-8.0) g/dL Albumin (3.2-4.6) g/dL Globulin g/dL Albumin/Globulin Ratio Meds: Medications Generic Name Dose Route Start Last Admin Trade Name Freq PRN Reason Stop Dose Admin Sodium Chloride 10 ml 03/19/21 10:55 03/19/21 11:48 Sodium Chloride 0.9% 10 Ml Syringe FLUSH 10 ml ASDIRECTED PRN Administration Keep Vein Open Discontinued Medications Generic Name Dose Route Start Last Admin Trade Name Freq PRN Reason Stop Dose Admin Ketorolac Tromethamine 30 mg 03/19/21 11:20 03/19/21 11:46 Ketorolac 30 Mg/Ml Sdv IVPUSH 03/19/21 11:21 30 mg NOW STA Administration Departure - Departure Time of Disposition: 12:35 Disposition: Home, Self-Care 01 Reason for Transfer *Q: Other (Bradycardia) Condition: Good Clinical Impression: Chest wall pain, Cardiomyopathy, Bradycardia Prescriptions: traMADol [Ultram] 100 mg PO Q8H PRN #15 tab PRN Reason: Pain Instructions: Cardiomyopathy, Adult, Nonspecific Chest Pain, Adult, [id number] Referrals: Beena Valentino PA [Primary Care Provider] - Additional Instructions: Please read discharge instructions on cardiomyopathy and chest wall pain Take tramadol 100 mg with tylenol 1000 every 8 hours as needed for pain Take metoprolol 12.5 mg daily instead of 25 mg daily. If your doctor will ask why your metoprolol was reduced tell him it's because you are now on normal sinus rhythm and that your heart rate dropped significantly. Follow up as needed - My Orders Last 24 Hours: My Active Orders 03/19/21 10:55 Sodium Chloride 0.9% [Saline Flush] 10 ml FLUSH ASDIRECTED PRN Saline Lock Insert [OM.PC] Routine EKG 12 Lead [EK] Routine - Assessment/Plan Last 24 Hours: My Active Orders 03/19/21 10:55 Sodium Chloride 0.9% [Saline Flush] 10 ml FLUSH ASDIRECTED PRN Saline Lock Insert [OM.PC] Routine EKG 12 Lead [EK] Routine
== END 2021-03-19 12:45 | disposition home or self-care (01) ==
LOC: FB.ED 10:54
DX: I42.9 Cardiomyopathy, unspecified (principal); R00.1 Bradycardia, unspecified; Z79.01 Long term (current) use of anticoagulants
CPT/HCPCS: 36415; 80053; 83880; 84484; 85025; 85610; 85730; 93005; 96374; 99285; J1885

== ENCOUNTER 2021-11-21 10:55 | Emergency (ER) | payer OTHER ==
[2021-11-21] MEDS ORDERED: Sodium Chloride 0.9% 10 ML Syringe FLUSH PRN (11:16)
[2021-11-21 11:30] LABS: ESTIMATED GFR 63 mL/min (>60)
[2021-11-21] MEDS ORDERED: Lactated Ringers 1,000 ML IV ONE (12:03)
== END 2021-11-21 12:44 | disposition home or self-care (01) ==
LOC: FB.ED 10:55
DX: E86.0 Dehydration (principal); I48.91 Unspecified atrial fibrillation; Z79.899 Other long term (current) drug therapy
CPT/HCPCS: 36415; 80048; 84484; 85379; 93005; 99284

== ENCOUNTER 2023-04-22 06:26 | Emergency (ER) | payer OTHER ==
[2023-04-22] MEDS ORDERED: Ketorolac 30 MG/ML SDV IM ONE (06:57)
[2023-04-22 07:16] LABS: BASOPHILS PERCENT AUTO 0.7 % (0.3-3.8); EOSINOPHILS ABSOLUTE AUTO 0.2 x10-3/uL (0.0-0.6); EOSINOPHILS PERCENT AUTO 3.1 % (0.1-6.8); HEMATOCRIT 45.5 % (38.3-50.1); HEMOGLOBIN 15.5 g/dL (12.9-17.7); LYMPHOCYTES ABSOLUTE AUTO 1.3 x10-3/uL (0.5-4.5); LYMPHOCYTES PERCENT AUTO 20.4 % (15.8-45.3); MEAN CORPUSCULAR HEMOGLOBIN 29.1 pg (27.0-33.3); MEAN CORPUSCULAR VOLUME 85.5 fL (80.8-98.7); MEAN PLATELET VOLUME 7.9 fL (6.7-11.0); MONOCYTES ABSOLUTE AUTO 0.5 x10-3/uL (0.0-1.2); MONOCYTES PERCENT AUTO 7.6 % (5.5-15.2); NEUTROPHILS ABSOLUTE AUTO 4.4 x10-3/uL (1.7-6.9); NEUTROPHILS PERCENT AUTO 68.2 % (40.3-71.8); PLATELET COUNT,PLT 248 x10(3)uL (117-477); RED BLOOD CELL COUNT 5.33 x10(6)uL (3.90-5.90); RED CELL DISTRIBUTION WIDTH 13.9 % (12.4-15.0); WHITE BLOOD CELL COUNT,WBC 6.5 x10-3/uL (3.2-10.1)
[2023-04-22 07:17] LABS: BLOOD UREA NITROGEN,BUN 17 mg/dL (7-18); BUN/CREATININE RATIO 14.2 (9-20); CARBON DIOXIDE,CO2 30 mmol/L (21-32); CHLORIDE,CL 104 mmol/L (100-110); CREATININE 1.2 mg/dL (0.70-1.30); EST CRCL DRUG DOSING (CG) 63.01 mL/min; ESTIMATED GFR 68 mL/min (>60); GLUCOSE RANDOM 132 mg/dL (80-116); POTASSIUM,K 3.9 mmol/L (3.5-5.3); SODIUM,NA 141 mmol/L (135-145)
[2023-04-22 07:23] LABS: A/G RATIO 0.9; ALANINE AMINOTRANSFERASE,ALT 25 U/L (12-36); ALBUMIN 3.4 g/dL (3.2-4.6); ALKALINE PHOSPHATASE 72 IU/L (56-112); ASPARTATE AMNIOTRANSFERASE,AST 17 IU/L (5-25); BILIRUBIN TOTAL 0.5 mg/dL (0.1-1.3); PROTEIN TOTAL,TP 7.1 g/dL (6.0-8.0)
[2023-04-22 07:52] LABS: BILIRUBIN,URINE NEGATIVE (NEGATIVE); GLUCOSE,URINE NORMAL (NORMAL); KETONES,URINE NEGATIVE (NEGATIVE); LEUKOCYTE ESTERASE,URINE NEGATIVE (NEGATIVE); NITRITE,URINE NEGATIVE (NEGATIVE); OCCULT BLOOD,URINE LARGE (NEGATIVE); PROTEIN,URINE NEGATIVE (NEGATIVE); UROBILINOGEN,URINE NORMAL (NEGATIVE)
[2023-04-22 07:53] LABS: APPEARANCE,URINE SLIGHTLY CLOUDY (CLEAR); BACTERIA,URINE MODERATE (NS); COLOR,URINE YELLOW (YELLOW); RBC,URINE >100 (0-5); SQUAMOUS EPITHELIAL CELLS,UR OCCASIONAL (NS,R,O); WBC,URINE 0-5 (0-5)
== END 2023-04-22 08:06 | disposition home or self-care (01) ==
LOC: FB.ED 06:26
DX: R10.31 Right lower quadrant pain (principal); Z79.01 Long term (current) use of anticoagulants; Z95.1 Presence of aortocoronary bypass graft
CPT/HCPCS: 36415; 74019; 80053; 81001; 85025; 86140; 96372; 99283; 99284; J1885

== ENCOUNTER 2024-03-18 18:09 | Emergency (ER) | payer OTHER ==
[2024-03-18] MEDS ORDERED: Acetaminophen/oxyCODONE 325-5 MG Tab PO ONE (18:10)
[2024-03-18] MEDS: Ketorolac 30 MG/ML SDV IVPUSH ONE (18:32)
[2024-03-18 18:39] LABS: HEMATOCRIT 46.8 % (38.3-50.1); HEMOGLOBIN 16.3 g/dL (12.9-17.7); MEAN CORPUSCULAR HEMOGLOBIN 29.5 pg (27.0-33.3); MEAN CORPUSCULAR HGB CONC 34.9 g/dL (28.7-35.3); MEAN CORPUSCULAR VOLUME 84.4 fL (80.8-98.7); MEAN PLATELET VOLUME 8.2 fL (6.7-11.0); PLATELET COUNT,PLT 296 x10(3)uL (117-477); RED BLOOD CELL COUNT 5.55 x10(6)uL (3.90-5.90); RED CELL DISTRIBUTION WIDTH 13.6 % (12.4-15.0)
[2024-03-18 18:43] LABS: BLOOD UREA NITROGEN,BUN 15 mg/dL (7-18); BUN/CREATININE RATIO 9.4 (9-20); CALCIUM 9.6 mg/dL (8.6-10.2); CARBON DIOXIDE,CO2 27 mmol/L (21-32); CHLORIDE,CL 100 mmol/L (100-110); CREATININE 1.6 mg/dL (0.70-1.30); ESTIMATED GFR 48 mL/min (>60); GLUCOSE RANDOM 165 mg/dL (80-116); SODIUM,NA 138 mmol/L (135-145)
[2024-03-18 18:48] LABS: ALANINE AMINOTRANSFERASE,ALT 35 U/L (12-36); ALBUMIN 3.9 g/dL (3.2-4.6); ALKALINE PHOSPHATASE 75 IU/L (56-112); ASPARTATE AMNIOTRANSFERASE,AST 22 IU/L (5-25); BILIRUBIN TOTAL 0.7 mg/dL (0.1-1.3); PROTEIN TOTAL,TP 7.9 g/dL (6.0-8.0)
[2024-03-18 18:54] LABS: LACTIC ACID 2.6 mmol/L (0.4-2.0)
[2024-03-18 19:08] LABS: LYMPHOCYTES PERCENT MAN 7 % (13-37); MONOCYTES PERCENT MAN 3 % (4-12); SEG NEUTROPHILS PERCENT MAN 90 % (46-82)
[2024-03-18 19:09] LABS: TOXIC GRANULATION MODERATE (NOT SEEN)
[2024-03-18] MEDS: Iopamidol 755 Mg/ML 100 ML Bottle IV ONE (19:21)
[2024-03-18] MEDS: Sodium Chloride 0.9% 1,000 ML IV ONE (19:22)
[2024-03-18 20:10] LABS: BILIRUBIN,URINE NEGATIVE (NEGATIVE); COLOR,URINE YELLOW (YELLOW); GLUCOSE,URINE NORMAL (NORMAL); KETONES,URINE NEGATIVE (NEGATIVE); LEUKOCYTE ESTERASE,URINE NEGATIVE (NEGATIVE); NITRITE,URINE NEGATIVE (NEGATIVE); OCCULT BLOOD,URINE LARGE (NEGATIVE); PROTEIN,URINE NEGATIVE (NEGATIVE); UROBILINOGEN,URINE NORMAL (NEGATIVE)
[2024-03-18 20:11] LABS: APPEARANCE,URINE CLEAR (CLEAR); BACTERIA,URINE FEW (NS); SQUAMOUS EPITHELIAL CELLS,UR OCCASIONAL (NS,R,O); WBC,URINE 0-5 (0-5)
[2024-03-18] MEDS: Morphine 2 MG/ML SYRINGE IVPUSH ONE (21:10)
[2024-03-18] MEDS: Tamsulosin 0.4 MG Cap.ER PO ONE (21:10)
[2024-03-18] MEDS: Sodium Chloride 0.9% 10 ML Syringe FLUSH PRN (21:10)
[2024-03-18] MEDS: Ondansetron 4 MG/2 ML SDV IVPUSH ONE (21:10)
== END 2024-03-18 22:43 | disposition home or self-care (01) ==
LOC: FB.ED 18:09
DX: N13.2 Hydronephrosis with renal and ureteral calculous obstruction (principal); I48.91 Unspecified atrial fibrillation; E66.9 Obesity, unspecified; Z90.49 Acquired absence of other specified parts of digestive tract; Z79.01 Long term (current) use of anticoagulants; Z79.899 Other long term (current) drug therapy
CPT/HCPCS: 36415; 74177; 80053; 81001; 83605; 83690; 85025; 86140; 96361; 96374; 96375; 99284; A9270; J1885; J2270; J2405; J7030; Q9967